=== PATIENT | male | born 1975 | race Caucasian/White ===

== ENCOUNTER 2023-06-15 06:21 | Outpatient (OUT) | payer OTHER, SELFPAY ==
[2023-06-15 06:50] LABS: Basophils Absolute Auto 0.1 10^3/uL (0.0-0.1); Basophils Percent Auto 0.9 % (0.2-2.0); Eosinophils Absolute Auto 0.4 10^3/uL (0.0-0.7); Eosinophils Percent Auto 7.6 % (0.9-7.0); Hematocrit 43.2 % (42.0-54.0); Hemoglobin 14.5 g/dL (14.0-18.0); Immature Granulocytes Abs Auto 0.01 10^3/uL (0.00-0.03); Immature Granulocytes Pct Auto 0.2 % (0.0-0.5); Lymphocytes Absolute Auto 1.9 10^3/uL (1.2-3.8); Lymphocytes Percent Auto 33.7 % (20.5-60.0); Mean Corpuscular HGB Conc 33.6 g/dL (29.9-35.2); Mean Corpuscular Hemoglobin 30.9 pg (25.9-34.0); Mean Corpuscular Volume 92.1 fL (80.0-94.0); Monocytes Absolute Auto 0.5 10^3/uL (0.3-0.8); Monocytes Percent Auto 9.3 % (1.7-12.0); Neutrophils Absolute Auto 2.8 10^3/uL (1.4-6.5); Neutrophils Percent Auto 48.3 % (43.0-75.0); Platelet Count 192 10^3/uL (150-450); Red Blood Count 4.69 10^6/uL (4.70-6.10); Red Cell Distribution Width 12.8 % (11.0-15.0); White Blood Count 5.7 10^3/uL (4.0-11.0)
[2023-06-15 07:27] LABS: Alanine Aminotransferase 66 U/L (16-63); Albumin Globulin Ratio 1.1; Albumin Level 3.7 g/dL (3.4-5.0); Alkaline Phosphatase 62 U/L (46-116); Anion Gap 13.6; Aspartate Amino Transferase 30 U/L (15-37); Bilirubin Total 0.6 mg/dL (0.2-1.0); Calcium 8.6 mg/dL (8.5-10.1); Carbon Dioxide 28.4 mmol/L (21.0-32.0); Chloride 104 mmol/L (98-107); Chol HDL Ratio 5.4; Cholesterol 207 mg/dL (<=200); Estimated GFR (African America >60 (>=60); Estimated GFR (Non-African Ame >60 (>=60); Globulin 3.4 g/dL; Glucose 103 mg/dL (74-106); HDL Cholesterol 38 mg/dL (40-60); Sodium 142 mmol/L (136-145); Total Protein 7.1 g/dL (6.4-8.2); Triglycerides 172 mg/dL (<=150); Uric Acid 8.7 mg/dL (3.5-7.2); VLDL CHOLESTEROL 34.4 mg/dL
[2023-06-15 07:44] LABS: Estimated Average Glucose 105 mg/dL; Glycohemoglobin A1C 5.3 % (4.5-6.2)
== END 2023-06-15 06:22 | disposition home or self-care (01) ==
LOC: LAB 06:24
PROVIDERS: PCP Internal Medicine; Visit Provider Internal Medicine
DX: E79.0 Hyperuricemia without signs of inflammatory arthritis and tophaceous disease (principal); I10 Essential (primary) hypertension; E78.5 Hyperlipidemia, unspecified; Z13.1 Encounter for screening for diabetes mellitus
CPT/HCPCS: 36415; 80053; 80061; 83036; 84550; 85025

== ENCOUNTER 2023-09-04 06:26 | Outpatient (OUT) | payer OTHER, SELFPAY ==
--- OUTSIDE RECORDS SUMMARY | 2023-09-04 06:29 | XMS_ITS | CCD ---
Author Name Unknown Address [address] [place] [address] Organization [facility] Care Team Providers Care Track Broom Operator Name Role Phone SAM BARON Admitting Unavailable SAM BARON Attending Unavailable SAM BARON Primary Care Unavailable SAM BARON Consulting Unavailable FAWWAD, SOLIMAN Admitting Unavailable FAWWAD, SOLIMAN Attending Unavailable SAM BARON Primary Care Unavailable Abigail Blank Consulting Unavailable FAWWAD, SOLIMAN Consulting Unavailable FAWWAD, SOLIMAN Admitting Unavailable FAWWAD, SOLIMAN Attending Unavailable FAWWAD, SOLIMAN Primary Care Unavailable FAWWAD, SOLIMAN Consulting Unavailable FAWWAD, SOLIMAN Admitting Unavailable FAWWAD, SOLIMAN Attending Unavailable FAWWAD, SOLIMAN Primary Care Unavailable DR TOM MCCRACKEN Consulting Unavailable FAWWAD, SOLIMAN Consulting Unavailable FAWWAD, SOLIMAN Admitting Unavailable FAWWAD, SOLIMAN Attending Unavailable FAWWAD, SOLIMAN Primary Care Unavailable FAWWAD, SOLIMAN Consulting Unavailable Zehra Fischer Unavailable Dominick Mcallister Unavailable Medications Current Medications Medication Drug Class(es) Dates Sig (Normalized) Sig (Original) Allopurinol (2 sources) Xanthine Oxidase Inhibitor Allopurinol Active Fenofibrate (2 sources) Peroxisome Proliferator Receptor alpha Agonist Fenofibrate Activ e Metoprolol (2 sources) beta-Adrenergic Cely Metoprol ol Succinate ER Active olmesartan (2 sources) Angiotensin 2 Receptor Cely Olmesartan Medoxomil Active pantoprazole (2 sources) Proton Pump Inhibitor Pantoprazo le Sodium Active Spironolactone (2 sources) Aldosterone Antagonist Spironola ctone Active Problems Active Problems Problem Classification Problem Date Documented Da te Episodic/Chronic Disorders of lipid metabolism (5 sources) Hyperlipidemia, unspecified; Translations: [HYPERLIPIDEMIA UNSPECIFIED] Onset: 06-05-2021 Chronic Essential hypertension (1 source) Essential (primary) hypertension; Translations: [ESSENTIAL PRIMARY HYPERTENSION] Onset: 06-05-2021 Chronic Gout and other crystal arthropathies (4 sources) Chronic gout, unspecified, without tophus (tophi); Translations: [CHRONIC GOUT UNSPECIFIED W/O TOPHUS] Onset: 05-31-2021 Chronic Other nutritional; endocrine; and metabolic disorders (1 source) Morbid (severe) obesity due to excess calories; Translations: [MORBID SEVERE OBES D/T EXCESS LEWIS] Onset: 08-30-2021 Chronic Other screening for suspected conditions (not mental disorders or infectious disease) (4 sources) Abnormal findings on diagnostic imaging of liver and biliary tract; Translations: [ABNORM FIND DX IMAG LIVR BILI TRACT] Onset: 10-15-2021 Episodic Past or Other Problems Problem Classification Problem Date Documented Da te Episodic/Chronic Immunizations and screening for infectious disease (1 source) Contact with and (suspected) exposure to other viral communicable diseases Onset: 06-06-2021 Resolved: 06-06-2021 Episodic Other liver diseases (5 sources) Abnormal levels of other serum enzymes; Translations: [ABNORMAL LEVELS OTHER SERUM ENZYMES] Onset: 07-07-2021 Episodic Viral infection (1 source) COVID-19 Onset: 06-06-2021 Resolved: 06-06-2021 Results Test Name Value Interpretation Reference Range Facil ity LIPID PROFILEon 12-06-2021 CHOL-HDL RATIO NORM SEE BELOW Normal [facility] Comment on above: Result Comment: 3.3 - 4.4 LOW RISK 4.4 - 7.1 AVERAGE RISK 7.1 - 11.0 MODERATE RISK >11.0 HIGH RISK Performed By: #### L IPID ####[facility] [address] [place], [place] [address]XrDoug Melissa Cholesterol [Mass/Vol] 140 mg/dL Normal <=200 [facility] Comment on above: Performed By: #### L IPID ####[facility] [address] [place], [place] [address]AkDoug Melissa Cholesterol in HDL [Mass/Vol] 37 mg/dL Critically low 40-60 [facility] Comment on above: Performed By: #### L IPID ####[facility] [address] [place] [id number]. Gertrude Melissa Cholesterol in LDL [Mass/Vol] 78.4 mg/dL Normal [facility] Comment on above: Performed By: #### L IPID ####[facility] [address] [place] [id number]. Gertrude Melissa Cholesterol.total/ Cholesterol in HDL [Mass ratio] 3.8 {ratio} Normal [facility] Comment on above: Performed By: #### L IPID ####[facility] [id number] [place] [address]Dr. Gertrude Melissa HDL NORMAL > or = 60 mg/dl - LO W CARDIOVASCULAR RISK <40 mg/dl - HIGH CARDIOVASCULAR RISK Normal [facility] Comment on above: Performed By: #### L IPID ####[facility] [address] [place], [place] [address]Dr. Gertrude Melissa LDL CALC NORMAL SEE BELOW Normal [facility] Comment on above: Result Comment: <100 mg/dl OPTIMAL 100 - 129 mg/dl NEAR OR ABOVE OPTIMAL 130 - 159 mg/dl BORDERLINE HIGH 160 - 189 mg/dl HIGH >190 mg/dl VERY HIGH Performed By: #### L IPID ####[facility] [address] [place] [id number]. Gertrude Melissa Triglyceride [Mass/Vol] 123 mg/dL Normal <=150 [facility] Comment on above: Performed By: #### L IPID ####[facility] [address] [place] [id number]. Gertrude Melissa VLDL CALC 24.6 mg/dL Normal [facility] Comment on above: Performed By: #### L IPID ####[facility] [address] [place] [id number]. Gertrude Melissa US SINGLE QUAD RT UPPERon US SINGLE QUAD RT UPPER EXAMINATION: US SINGLE QUAD RT UPPER HISTORY: Abnormal findings diagnostic imaging of liver+biliary tract ; abnormal liver function test COMPARISON: Ultrasound right upper quadrant 07/07/2021 TECHNIQUE: Transabdominal evaluation of the right upper quadrant. FINDINGS: LIVER: Slightly increased echogenicity suggestive of fatty infiltration, with small hypoechoic area adjacent the gallbladder fossa typically associated with an area of fatty sparing. Liver appears slightly prominent, 18 cm. PORTAL VEIN: Duplex Doppler demonstrates normal hepatopetal flow pattern with flow velocity averaging 22 cm/s. GALLBLADDER: No visible gallstones, wall thickening, or pericholecystic free fluid. Negative sonographic Mendoza's sign. BILIARY: No abnormal dilation or stones. Common bile duct diameter is within normal limits. PANCREASE: No visible mass, abnormal atrophy, or duct dilation. KIDNEY: No hydronephrosis. No visible mass or stones. Size: 12.9 x 6.4 x 7.2 cm IMPRESSION: 1. Fatty infiltration of liver. Electronically authenticated by: TOM MCCRACKEN Date: 2021-10-15 16:50 Normal [facility] HEPATITIS PANEL, ACUTEon HBsAg Screen Negative Normal Negative [facility] Comment on above: Performed By: #### H EPACUT #### [facility] [address] [place] [address] [address] Gertrude Melissa Hep A Ab, IgM Negative Normal Negative [facility] Comment on above: Performed By: #### H EPACUT #### [facility] [address] [place] [address] [address] Gertrude Melissa Hep B Core Ab, IgM Negative Normal Negative [facility] Comment on above: Performed By: #### H EPACUT #### [facility] [address] [place] [address] [address] Gertrude Melissa Hep C Virus Ab <0.1 Normal 0.0-0.9 [facility] Comment on above: Result Comment: Nega tive: < 0.8 Indeterminate: 0.8 - 0.9 Positive: > 0.9 . The CDC recommends that a positive HCV antibody result be followed up with a HCV Nucleic Acid Amplification test (586831). Effective October 10, 2021 Hepatitis Panel (4) will be made non-orderable. [facility] offers order code 100402 Acute Hepatitis. Performed By: #### H EPACUT #### [facility] [address] [place] [address] Dr. Gertrude Melissa LIPID PROFILEon 08-26-2021 CHOL-HDL RATIO NORM SEE BELOW Normal [facility] Comment on above: Result Comment: 3.3 - 4.4 LOW RISK 4.4 - 7.1 AVERAGE RISK 7.1 - 11.0 MODERATE RISK >11.0 HIGH RISK Performed By: #### L IVER, LIPID #### [facility] [address] [place] [address] [address] Gertrude Melissa Cholesterol [Mass/Vol] 155 mg/dL Normal <=200 [facility] Comment on above: Performed By: #### L IVER, LIPID #### [facility] [address] [place] [address] Dr. Gertrude Melissa Cholesterol in HDL [Mass/Vol] 41 mg/dL Normal [facility] Comment on above: Performed By: #### L IVER, LIPID #### [facility] [address] [place] [address] Dr. Gertrude Melissa Cholesterol in LDL [Mass/Vol] 92.2 mg/dL Normal [facility] Comment on above: Performed By: #### L IVER, LIPID #### [facility] [address] [place] [address] Dr. Gertrude Melissa Cholesterol.total/ Cholesterol in HDL [Mass ratio] 3.8 {ratio} Normal [facility] Comment on above: Performed By: #### L IVER, LIPID #### [facility] [address] [place] [address] Dr. Gertrude Melissa HDL NORMAL > or = 60 mg/dl - LO W CARDIOVASCULAR RISK <40 mg/dl - HIGH CARDIOVASCULAR RISK Normal [facility] Comment on above: Performed By: #### L IVER, LIPID #### [facility] [address] [place], [place] [id number] Dr. Gertrude Melissa LDL CALC NORMAL SEE BELOW Normal [facility] Comment on above: Result Comment: <100 mg/dl OPTIMAL 100 - 129 mg/dl NEAR OR ABOVE OPTIMAL 130 - 159 mg/dl BORDERLINE HIGH 160 - 189 mg/dl HIGH >190 mg/dl VERY HIGH Performed By: #### L IVER, LIPID #### [facility] [address] [place] [address] [address] Gertrude Melissa Triglyceride [Mass/Vol] 109 mg/dL Normal <=150 [facility] Comment on above: Performed By: #### L IVER, LIPID #### [facility] [address] [place] [address] [address] Gertrude Melissa VLDL CALC 21.8 mg/dL Normal [facility] Comment on above: Performed By: #### L IVER, LIPID #### [facility] [address] [place] [address] [address] Gertrude Melissa LIVER PROFILEon 08-26-2021 Albumin [Mass/Vol] 3.9 g/dL Normal 3.5-5.0 [facility] Comment on above: Performed By: #### L IVER, LIPID #### [facility] [address] [place] [address] Dr. Gertrude Melissa Albumin/Globulin [Mass ratio] 1.0 {ratio} Normal [facility] Comment on above: Performed By: #### L IVER, LIPID #### [facility] [address] [place] [address] Dr. Gertrude Melissa ALP [Catalytic activity/Vol] 50 U/L Normal 38-126 [facility] Comment on above: Performed By: #### L IVER, LIPID #### [facility] [address] [place] [address] Dr. Gertrude Melissa ALT [Catalytic activity/Vol] 79 U/L Critically high 21-72 [facility] Comment on above: Performed By: #### L IVER, LIPID #### [facility] [address] [place] [address] Dr. Gertrude Melissa AST [Catalytic activity/Vol] 35 U/L Normal 17-59 [facility] Comment on above: Performed By: #### L IVER, LIPID #### [facility] [address] [place] [address] Dr. Gertrude Melissa BILI, CONJUGATED 0.2 mg/dL Normal 0.0-0.3 [facility] Comment on above: Performed By: #### L IVER, LIPID #### [facility] [address] [place], [place] [address] Dr. Gertrude Melissa Bilirubin [Mass/Vol] 0.6 mg/dL Normal 0.2-1.3 [facility] Comment on above: Performed By: #### L IVER, LIPID #### [facility] [address] [place], [place] [address] Dr. Gertrude Melissa Globulin (S) [Mass/Vol] 3.8 g/dL Normal [facility] Comment on above: Performed By: #### L IVER, LIPID #### [facility] [address] [place], [place] [address] Dr. Gertrude Melissa Protein [Mass/Vol] 7.7 g/dL Normal 6.1-8.2 [facility] Comment on above: Performed By: #### L IVER, LIPID #### [facility] [address] [place], [place] [address] Dr. Gertrude Melissa US SINGLE QUAD RT UPPERon US SINGLE QUAD RT UPPER EXAM: US SINGLE QUAD RT UPPER HISTORY: . Liver enzymes abnormal . COMPARISON: None. TECHNIQUE: Grayscale and color imaging was performed FINDINGS: The body of pancreas appears normal. The head and tail was scattered due to overlying bowel gas Scanning of the liver demonstrates diffuse increased echogenicity of liver consistent with fatty infiltration of the liver. Within the right lobe of the liver near the gallbladder fossa there was a small area of hypoechogenicity most consistent with focal fatty sparing. The liver is mildly enlarged measuring 18 cm. Color-flow is noted in the portal and hepatic veins. The gallbladder appears normal with no stones or sludge identified. No gallbladder wall thickening is noted. Common bile duct is normal measuring 4.6 mm. Right kidney measures 11.9 x 6.7 x 7.5 cm. Color-flow is noted. No solid renal cortical masses or hydronephrosis is noted. No fluid is noted in the right upper quadrant. IMPRESSION: 1. The liver is mildly enlarged measuring 18 cm. There is increased echogenicity of liver consistent with fatty infiltration of the liver. There is a small area of hypoechogenicity in the right lobe liver near the gallbladder fossa most consistent with focal fatty sparing. Follow-up to document stability is suggested. 2. The body of pancreas appears normal. The head and tail was obscured due to overlying bowel gas. 3. The remainder of the right upper quadrant was unremarkable. Electronically authenticated by: ABIGAIL BLANK Date: 2021-07-07 09:14 Normal [facility] CBC AUTO DIFFon 05-31-2021 BASO # 0.0 103/ul Normal 0.0-0.1 [facility] Comment on above: Performed By: #### C BC #### [facility] [address] [place] [address] Dr. Gertrude Melissa Basophils/100 WBC (Bld) 0.7 % Normal 0.2-2.0 [facility] Comment on above: Performed By: #### C BC #### [facility] [address] [place] [address] Dr. Gertrude Melissa EO # 0.3 103/ul Normal 0.0-0.7 [facility] Comment on above: Performed By: #### C BC #### [facility] [address] [place] [address] Dr. Gertrude Melissa Eosinophils/100 WBC (Bld) 5.2 % Normal 0.9-7.0 [facility] Comment on above: Performed By: #### C BC #### [facility] [address] [place] [address] Dr. Gertrude Melissa Erythrocyte distribution width (RBC) [Ratio] 12.8 % Normal 11.0-15.0 [facility] Comment on above: Performed By: #### C BC #### [facility] [address] [place] [address] Dr. Gertrude Melissa Hematocrit (Bld) [Volume fraction] 44.4 % Normal 42.0-54.0 [facility] Comment on above: Performed By: #### C BC #### [facility] [address] [place] [address] Dr. Gertrude Melissa Hemoglobin (Bld) [Mass/Vol] 14.6 g/dL Normal 14.0-18.0 [facility] Comment on above: Performed By: #### C BC #### [facility] [address] [place] [address] Dr. Gertrude Melissa IG # 0.02 10e3/ul Normal 0.00-0.03 [facility] Comment on above: Performed By: #### C BC #### [facility] [address] [place] [address] Dr. Gertrude Melissa IG % 0.4 % Normal 0.0-0.5 [facility] Comment on above: Performed By: #### C BC #### [facility] [address] [place] [address] Dr. Gertrude Melissa LYMPH # 1.7 103/ul Normal 1.2-3.8 [facility] Comment on above: Performed By: #### C BC #### [facility] [address] [place] [address] Dr. Gertrude Melissa Lymphocytes/100 WBC (Bld) 31.9 % Normal 20.5-60.0 [facility] Comment on above: Performed By: #### C BC #### [facility] [address] [place] [address] Dr. Gertrude Melissa MANUAL DIFF REQ NO Normal [facility] Comment on above: Performed By: #### C BC #### [facility] [address] [place] [address] Dr. Gertrude Melissa MCH (RBC) [Entitic mass] 31.1 pg Normal 25.9-34.0 [facility] Comment on above: Performed By: #### C BC #### [facility] [address] [place] [address] Dr. Gertrude Melissa MCHC (RBC) [Mass/Vol] 32.9 g/dL Normal 29.9-35.2 [facility] Comment on above: Performed By: #### C BC #### [facility] [address] [place] [address] Dr. Gertrude Melissa MCV (RBC) [Entitic vol] 94.5 fL Critically high 80.0-94.0 [facility] Comment on above: Performed By: #### C BC #### [facility] [address] [place] [address] Dr. Gertrude Melissa MONO # 0.4 103/ul Normal 0.3-0.8 [facility] Comment on above: Performed By: #### C BC #### [facility] [address] [place] [address] [address] Gertrude Melissa Monocytes/100 WBC (Bld) 7.6 % Normal 1.7-12.0 [facility] Comment on above: Performed By: #### C BC #### [facility] [address] [place] [address] [address] Gertrude Melissa NEUT # 2.9 103/ul Normal 1.4-6.5 [facility] Comment on above: Performed By: #### C BC #### [facility] [address] [place] [address] Dr. Gertrude Melissa Neutrophils/100 WBC (Bld) 54.2 % Normal 43.0-75.0 [facility] Comment on above: Performed By: #### C BC #### [facility] [address] [place] [address] Dr. Gertrude Melissa Platelet mean volume (Bld) [Entitic vol] 11.0 fL Normal 9.5-13.5 [facility] Comment on above: Performed By: #### C BC #### [facility] [address] [place] [address] Dr. Gertrude Melissa PLT 232 103/ul Normal 150-450 [facility] Comment on above: Performed By: #### C BC #### [facility] [address] [place] [address] Dr. Gertrude Melissa RBC 4.70 106/ul Normal 4.70-6.10 [facility] Comment on above: Performed By: #### C BC #### [facility] [address] [place] [address] Dr. Gertrude Melissa WBC 5.4 103/ul Normal 4.0-11.0 [facility] Comment on above: Performed By: #### C BC #### [facility] [address] [place] [address] Dr. Gertrude Melissa LIPID PROFILEon 05-31-2021 CHOL-HDL RATIO NORM SEE BELOW Normal [facility] Comment on above: Result Comment: 3.3 - 4.4 LOW RISK 4.4 - 7.1 AVERAGE RISK 7.1 - 11.0 MODERATE RISK >11.0 HIGH RISK Performed By: #### C MP, URIC, LIPID #### [facility] [address] [place] [address] [address] Gertrude Melissa Cholesterol [Mass/Vol] 204 mg/dL Critically high <=200 [facility] Comment on above: Performed By: #### C MP, URIC, LIPID #### [facility] [address] [place] [address] [address] Gertrude Melissa Cholesterol in HDL [Mass/Vol] 41 mg/dL Normal [facility] Comment on above: Performed By: #### C MP, URIC, LIPID #### [facility] [address] [place] [address] Dr. Gertrude Melissa Cholesterol in LDL [Mass/Vol] 133.0 mg/dL Normal [facility] Comment on above: Performed By: #### C MP, URIC, LIPID #### [facility] [address] [place] [address] [address] Gertrude Melissa Cholesterol.total/ Cholesterol in HDL [Mass ratio] 5.0 {ratio} Normal [facility] Comment on above: Performed By: #### C MP, URIC, LIPID #### [facility] [address] [address] [address] Gertrude Melissa HDL NORMAL > or = 60 mg/dl - LO W CARDIOVASCULAR RISK <40 mg/dl - HIGH CARDIOVASCULAR RISK Normal [facility] Comment on above: Performed By: #### C MP, URIC, LIPID #### [facility] [address] [place] [address] Dr. Gertrude Melissa LDL CALC NORMAL SEE BELOW Normal [facility] Comment on above: Result Comment: <100 mg/dl OPTIMAL 100 - 129 mg/dl NEAR OR ABOVE OPTIMAL 130 - 159 mg/dl BORDERLINE HIGH 160 - 189 mg/dl HIGH >190 mg/dl VERY HIGH Performed By: #### C MP, URIC, LIPID #### [facility] [address] [place] [address] Dr. Gertrude Melissa Triglyceride [Mass/Vol] 150 mg/dL Normal <=150 [facility] Comment on above: Performed By: #### C MP, URIC, LIPID #### [facility] [address] [address] [address] Gertrude Melissa VLDL CALC 30.0 mg/dL Normal [facility] Comment on above: Performed By: #### C MP, URIC, LIPID #### [facility] [address] [place] [address] [address] Gertrude Melissa MICROALBUMIN, RAND URon 11- mALB 0.2 mg/L Normal <=30.0 [facility] Comment on above: Performed By: #### M ALBR #### [facility] [address] [address] [address] Gertrude Melissa PROF 14(COMP METB)on 021 Albumin [Mass/Vol] 4.2 g/dL Normal 3.5-5.0 [facility] Comment on above: Performed By: #### C MP, URIC, LIPID #### [facility] [address] [place] [address] Dr. Gertrude Melissa Albumin/Globulin [Mass ratio] 1.1 {ratio} Normal [facility] Comment on above: Performed By: #### C MP, URIC, LIPID #### [facility] [address] [place] [address] Dr. Gertrude Melissa ALP [Catalytic activity/Vol] 59 U/L Normal 38-126 [facility] Comment on above: Performed By: #### C MP, URIC, LIPID #### [facility] [address] [address] [address] Gertrude Melissa ALT [Catalytic activity/Vol] 96 U/L Critically high 21-72 [facility] Comment on above: Performed By: #### C MP, URIC, LIPID #### [facility] [address] [place] [address] Dr. Gertrude Melissa Anion gap [Moles/Vol] 11.5 mmol/L Normal [facility] Comment on above: Performed By: #### C MP, URIC, LIPID #### [facility] [address] [place] [address] Dr. Gertrude Melissa AST [Catalytic activity/Vol] 48 U/L Normal 17-59 [facility] Comment on above: Performed By: #### C MP, URIC, LIPID #### [facility] [address] [place] [address] Dr. Gertrude Melissa Bilirubin [Mass/Vol] 0.7 mg/dL Normal 0.2-1.3 [facility] Comment on above: Performed By: #### C MP, URIC, LIPID #### [facility] [address] [place] [address] Dr. Gertrude Melissa Calcium [Mass/Vol] 9.4 mg/dL Normal 8.4-10.2 [facility] Comment on above: Performed By: #### C MP, URIC, LIPID #### [facility] [address] [place] [address] Dr. Gertrude Melissa Chloride [Moles/Vol] 103 mmol/L Normal 98-107 [facility] Comment on above: Performed By: #### C MP, URIC, LIPID #### [facility] [address] [place] [address] Dr. Gertrude Melissa CO2 [Moles/Vol] 29.6 mmol/L Normal 22.0-30.0 The [facility] Comment on above: Performed By: #### C MP, URIC, LIPID #### [facility] [address] [place] [address] Dr. Gertrude Melissa Creatinine [Mass/Vol] 1.24 mg/dL Normal 0.66-1.25 [facility] Comment on above: Performed By: #### C MP, URIC, LIPID #### [facility] [address] [place] [address] Dr. Gertrude Melissa EGFR-AF UGANDAN >60 Normal >=60 The [facility] Comment on above: Performed By: #### C MP, URIC, LIPID #### [facility] [address] [place] [address] Dr. Gertrude Melissa EGFR-NON AF UGANDAN >60 Normal >=60 [facility] Comment on above: Performed By: #### C MP, URIC, LIPID #### [facility] [address] [place] [address] Dr. Gertrude Melissa Globulin (S) [Mass/Vol] 3.9 g/dL Normal [facility] Comment on above: Performed By: #### C MP, URIC, LIPID #### [facility] [address] [address] [address] Gertrude Melissa Glucose [Mass/Vol] 85 mg/dL Normal 74-106 [facility] Comment on above: Performed By: #### C MP, URIC, LIPID #### [facility] [address] [place] [address] Dr. Gertrude Melissa Potassium [Moles/Vol] 4.1 mmol/L Normal 3.4-5.0 [facility] Comment on above: Performed By: #### C MP, URIC, LIPID #### [facility] [address] [place] [address] Dr. Gertrude Melissa Protein [Mass/Vol] 8.1 g/dL Normal 6.1-8.2 [facility] Comment on above: Performed By: #### C MP, URIC, LIPID #### [facility] [address] [place] [address] Dr. Gertrude Melissa Sodium [Moles/Vol] 140 mmol/L Normal 137-145 [facility] Comment on above: Performed By: #### C MP, URIC, LIPID #### [facility] [address] [place] [address] Dr. Gertrude Melissa Urea nitrogen [Mass/Vol] 17.0 mg/dL Normal 9.0-20.0 [facility] Comment on above: Performed By: #### C MP, URIC, LIPID #### [facility] [address] [place] [address] Dr. Gertrude Melissa Urea nitrogen/Creatinin e [Mass ratio] 13.7 mg/mg Normal [facility] Comment on above: Performed By: #### C MP, URIC, LIPID #### [facility] [address] [place] [address] Dr. Gertrude Melissa URIC ACID SERUMon 05-31-2021 Urate [Mass/Vol] 5.5 mg/dL Normal 3.5-8.5 [facility] Comment on above: Performed By: #### C MP, URIC, LIPID #### [facility] [address] [address] [address] Gertrude Melissa Vital Signs Date Time Vital Sign Value Performing Clinician Facility 06-06-2021 11:30-0500 Body height 190.5 cm Zehra Izquierdomond Other [facility] Other 06-06-2021 11:30-0500 Body mass index (BMI) [Ratio] 44.99 kg/m2 Zehra Fischer Other [facility] Other 06-06-2021 11:30-0500 Body temperature 97.1 [degF] Zehra Fischer Other [facility] Other 06-06-2021 11:30-0500 Body weight 163.3 kg Zehra Fischer Other [facility] Other 06-06-2021 11:30-0500 SaO2% (BldA) [Mass fraction] 99 % Zehra Fischer Other [facility] Other Encounters Encounter Date Encounter Type Care Provider Facility Start: 08-02-2023 End: 08-02-2023 ambulatory Dominick Mcallister Other [facility] Other Start: 08-02-2023 Telephone encounter Dominick VILLAR G Document Control Supervisor Start: 12-06-2021 End: 12-07-2021 ambulatory [facility] Facility:[facility]1 Start: 10-15-2021 End: 10-16-2021 ambulatory [facility] Facility:[facility] Start: 08-26-2021 End: 08-27-2021 ambulatory [facility] Facility:[facility] Start: 07-07-2021 End: 07-08-2021 ambulatory [facility] Facility:[facility]1 Start: 06-06-2021 (URG) Urgent Care Visit [facility] Start: 06-06-2021 End: 06-06-2021 ambulatory Zehra Fischer Other [facility] Other Start: 05-31-2021 End: 06-01-2021 ambulatory SAM BARON Facility:[facility]1 Payers Date Payer Category Payer Unknown [id number] 2.16.84 [id number] 1975 Unknown [id number] 2.16.84 [id number] 1975 Unknown [id number] 2.16.84 [id number] 1975 Unknown [id number] 2.16.84 [id number] 1975 Unknown [id number] 2.16.84 [id number] 1959 Unknown [id number] Social History Date Type Detail Facility Sex Assigned At [facility] Other Evaluation note 06-06-2021 Note Date & Type Note Facility 06-06-2021 Evaluation note Encounter Date Diagnosis Assessment Notes May, Contact with and (suspected) exposure to other viral communicable diseases (ICD-10 - Z20.828) May, COVID-19 (ICD-10 - U07.1) May, Other Additional time spent conducting pre-visit phone call, screening for symptoms, instructions on social distancing, application and removal of PPE, and cleaning of examination room, equipment and supplies was preformed. Patient education given for testing methodology and results. Patient care instructions given in writting by [facility] document. [facility] Other Evaluation note Note Date & Type Note Facility Evaluation note No Information [facility] Other History general Narrative - Reported Note Date & Type Note Facility History general Narrative - Reported Type Medical History high blood pressure Medical History high cholesterol [facility] Other Summary Purpose Family History No Family History Records Found Advance Directives No Advanced Directives Records Found Additional Source Comments (unrecognized sect ion and content) No Status Records Found INFORMATION SOURCE (unrecogn ized section and content) DATE CREATED AUTHOR 12/10/2021 [facility] REASON FOR VISIT (unrecogniz ed section and content) #7 GONZALEZ TRAILBLAZER, COUGH, CONGESTION, COVID EXPSOUREMAIL PPW FOR RECORDS PERTAINING TO PATIENTS WHO ARE OR HAVE BEEN ENROLLED IN A CHEMICAL DEPENDENCY/SUBSTANCEABUSE PROGRAM, SOME INFORMATION MAY BE OMITTED. This clinical summary was aggregated from multiple sources. Caution should be exercised in using it in the provision of clinical care. This summary normalizes information from multiple sources, and as a consequence, information in this document may materially change the coding, format and clinical context of patient data. In addition, data may be omitted in some cases. CLINICAL DECISIONS SHOULD BE BASED ON THE PRIMARY CLINICAL RECORDS. [employer] provides no warranty or guarantee of the accuracy or completeness of information in this document.
[2023-09-04 07:33] LABS: Alanine Aminotransferase 66 U/L (16-63); Albumin Level 3.7 g/dL (3.4-5.0); Alkaline Phosphatase 65 U/L (46-116); Aspartate Amino Transferase 26 U/L (15-37); Bilirubin Direct 0.1 mg/dL (0.0-0.2); Bilirubin Total 0.5 mg/dL (0.2-1.0); Chol HDL Ratio 3.6; Cholesterol 135 mg/dL (<=200); Globulin 3.8 g/dL; HDL Cholesterol 38 mg/dL (40-60); Total Protein 7.5 g/dL (6.4-8.2); Triglycerides 107 mg/dL (<=150); VLDL CHOLESTEROL 21.4 mg/dL
== END 2023-09-04 06:27 | disposition home or self-care (01) ==
LOC: LAB 06:27
PROVIDERS: PCP Internal Medicine; Visit Provider Internal Medicine
DX: E78.49 Other hyperlipidemia (principal); E88.810 Metabolic syndrome
CPT/HCPCS: 36415; 80061; 80076

== ENCOUNTER 2025-07-21 08:52 | Outpatient (OUT) | payer OTHER, SELFPAY ==
--- OUTSIDE RECORDS SUMMARY | 2025-07-14 03:54 | XMS_ITS | Continuity of Care Document ---
Author Organization [facility] Address [address] [place] [address] Phone Care Team Providers Care Prop Worker Name Role Phone JonelMichaelSabrina DO Primary Care Provider [phone] Jonel, Sabrina DO Attending Provider [phone] Care Teams Patient Care Team Team Status: Active Member Role/Relationship Status Dates Sabrina Jonel , DO Primary Care Provider Active Visit Care Team Team Status: Inactive Member Role/Relationship Status Dates Sabrina Jonel , DO Primary Care Provider Active S tart: May 26, 2025 End: May 26, 2025Jessica Jonel , DOAttending ProviderActiveStart: May 26, 2025 End: May 26, 2025 Visit Care Team Team Status: Inactive Member Role/Relationship Status Dates Sabrina Jonel , DO Primary Care Provider Active S tart: June 02, 2025 End: June 02, 2025Jessica Jonel , DOAttending ProviderActiveStart: June 02, 2025 End: June 02, 2025 Visit Care Team Team Status: Inactive Member Role/Relationship Status Dates Sabrina Jonel , DO Primary Care Provider Active S tart: June 02, 2025 End: June 02, 2025Jessica Jonel , DOAttending ProviderActiveStart: June 02, 2025 End: June 02, 2025 Patient Care Team Team Status: Inactive Member Role/Relationship Status Dates Sabrina Jonel , DO Primary Care Provider Active S tart: July 14, 2025 End: July 14, 2025Jessica Jonel , DOAttending ProviderActiveStart: July 14, 2025 End: July 14, 2025 Chief Complaint and Reason for Visit Chief Complaint Admit Date back pain and spasms May 26, 2025 8:12am Back Pain June 02, 2025 1 1:22am M54.50 June 02, 2025 1 2:17pm 6M July 14, 2025 8:08am Reason for Visit Admit Date Strain of right latissimus dorsi muscle May 26, 2025 8:12am Acute lumbar back pain June 02 11:22am Acid reflux July 14, 2025 8:08am Gout July 14, 2025 8:08am High cholesterol July 14, 2025 8:08am HTN (hypertension) July 14, 2025 8:08am Seasonal allergies July 14, 2025 8:08am Reason for Referral Type Reason(s) Provider Provider Contact Information P rovider Address Start Date Acute low back pain Strain of right latissimus dorsi gqtaauA87.50 - Low back pain, unspecified,S29.012A - Strain of muscle and tendon of back wall of thorax, [facility]: [phone] [facility] [id number] Allergies, Adverse Reactions, Alerts Allergen Type Severity Reaction Last Updated Verified Status No Known Allergies Allergy Unknown July 14, 2025 8:14amYesActive Social History Smoking Status Status Start Date End Date Date of Observa tion Never smoked tobacco (finding) May 26, 2025 8:18am Observation Status Observation Response Date of Response Legal Sex Male (finding) Sex Assigned At [facility] 1975 Family History Relationship Condition Age at Onset Recorded Date/T clara mother Malignant neoplasm Unknown fatherHeart diseaseUnknownMyocardial infarctionUnknownHigh blood cholesterol UnknownHypertensionUnknownCerebrovascular accident (CVA)Unknown Problems Active Problems Problem Diagnosis/Recorded Date Onset Date Stat us Strain of right latissimus dorsi muscle May 26, 2025 7:46am Unknown Active Shortness of breath July 14, 2025 8:48am Unknown Active Gout September 06, 2023 7:23am Unknown Ac tive High cholesterol September 06, 2023 7:23am Unknown Active Seasonal allergies July 14, 2025 8:34am Unknown Active Wheezing July 14, 2025 8:48am Unknown A ctive Acute lumbar back pain June 02, 2025 11:47am Unkn own Active Acid reflux September 06, 2023 7:28am Unknown Ac tive HTN (hypertension) September 06, 2023 7:23am Unknown Active Medications Medication Status Dose Units Route Directions Qty Days Refills S tart Date Stop Date End Date Reason(s) Instructions Adherence Atorvastatin 20 mg tablet Discontinued 20 MG PO D aily September 06, 2023 12:00amOct[facility] 2024 7:21amMetoprolol Succinate 200 mg tablet extended release 24 hiYelvri980JSZKEigwtImzvwapr 2023 12:00am Complies with drug therapyPantoprazole 20 mg tablet,delayed release (DR/EC) Vubwflmavpqt02FLEF.every other dayFehonorhealth j[facility] 2023 12:00amDeencompass health [facility] 2024 8:45amAllopurinol 300 mg axquguFytvys216OGJYSeqboKglophky 2023 12:00am Complies with drug therapyOlmesartan 20 mg tkmwkdOrteos05BLCRZjbknYmnuoese 2023 12:00amComplies with drug therapyPantoprazole 20 mg tablet,delayed release (DR/EC)Yqijcbsnqbcy45RHMIVzoomNmysbtie 2024 8:44amDeceer 2024 8:45amPantoprazole 40 mg tablet,delayed release (DR/EC)Rppkiw84HJDBYfxdz931 July 14, 2025 12:00amComplies with drug therapyAlbuterol Sulfate 90 mcg/actuation HFA aerosol afmpsamVwfvxe9XDENPCGVYQAEWOZgzjs 6 hours as needed for shortness of breath or wheezing8.53Deencompass health [facility] 2024 12:00amComplies with drug therapyFluticasone Propionate (Aller-Caleb) 50 mcg/actuation spray,suspension Appfit8WYXLWADGNCVQCINZnwon dailyOctfleming county hospital 2024 11:00pmadminister into each nostrilComplies with drug therapyCetirizine (All Day Allergy (Cetirizine)) 10 mg qdmtmxiTlmgff14AZJNTymmt as neededOctfleming county hospital 2024 11:00pmComplies with drug therapyPrednisone 20 mg ppvgfoGkdovzorqkrf79UZVMEmgyk2669Ikyztjf 2024 11:00pmNovbarrow neurological institute 2024 11:32amBaclofen 10 mg hdxivxSadrdgjhemsk17ZOOPAboyn times daily as needed for muscle oceyh1972Vglhqkd 2024 11:00pmJune 02, 2025 11:32amCelecoxib (Celebrex) 100 mg wuxsmxiIasrnbnfmuic874QVLJUfaqp cdppy63904Frllwxek 4th, 2025 12:00amDecember 2024 8:14am Procedures Procedure Date Performed Status XR lumbar spine 2-3V* June 02, 2025 12:00am completed Relevant Diagnostic Tests and/or Laboratory Data Diagnostic Imaging Reports Author Boby Posada [facility] CenterAuthoredNov2024 4:56pmReportDictated Date/TimeDictated ByStatusRadiology ReportJune 02, 2025 4:56pmBoby Posada [facility] [place] [address] XRay Report Signed Patient: Nickolas Livingston MR#: [id number] 00 : 1975 Acct:[id number] Age/Sex: 49 / M ADM Date: 5 Loc: XNVLY Room: Type: [facility] Attending Dr: Sabrina Remy DO Copies to: Sabrina Remy DO~ Ordering Provider: Sabrina Remy DO Date of Service: 06/02/25 XR/XR lumbar spine 2-3V*: LOW BACK PAIN 3 VIEWS OF THE LUMBAR SPINE INDICATION: Acute low back pain COMPARISON: None FINDINGS: There is straightening of normal lumbar lordosis. There is mild loss of height at L1 and involving inferior plate, age-indeterminate and possibly chronic.. Mild intervertebral space narrowing otherwise L4-S1. Mild facet arthropathy L4-S1. No definite spinal listhesis or spondylolysis identified. XR/XR lumbar spine 2-3V* IMPRESSION: Mild degenerative changes lower lumbar spine. Inferior plate deformity at L1 possibly chronic. Correlate with history. Otherwise no definite acute fracture or malalignment identified Impression dictated by: Boby Posada M.D. 06/02/2025 4:59 PM Dictation Location: [address] [address] Transcribed By: [facility] 06/02/25 3481 Dictated By: Boby Posada MD 06/02/251655 Signed By: <Electronically signed by Boby Posada MD in [place]> 06/02/251658 Vital Signs Vital Reading Result Reference Range Collection Date/Time Height 75 [in_i] May 26, 2025 7:75zyYqqeoq566.36 kgOctober 2024 7:16amHeart Rate84 /gul09-819Igyrbwq 2024 7:16amRespiratory rate20 /aja01-23Kcfengd 2024 7:16amOxygen saturation by Pulse %95-100October 2024 7:16amBP Mnllufim682 mm[Hg]100-140October 2024 7:16amBP Rxihvuzuj97 mm[Hg] 60-100October 2024 7:16amBMI (Body Mass Index)47.5 kg/i8Eurmjae 2024 7:53ibKkvvys92 [in_i]June 02, 2025 11:55xeUycaxq569.91 kgNovember 2024 11:28amHeart Rate76 /hue91-184Uzctuhud 4th, 2025 11:28amRespiratory rate20 /pwy74-12Ifrehreh 4th, 2025 11:28amOxygen saturation by Pulse %95-100 June 02, 2025 11:28amBP Oxyocvyf472 mm[Hg]100-140Nov2024 11:28am BP Jrhpnxijr90 mm[Hg]60-100November 2024 11:28amBMI (Body Mass Index)47.3 kg/n2Hmbjmdwp2024 11:02fkLqjzfe05 [in_i]July 14, 2025 8:13amWeight 174.63 kgDecember 2024 8:13amHeart Rate94 /wxv31-525Ukacvxkd 2024 8:13amRespiratory rate20 /nem16-66Jnnrlvho 2024 8:13amOxygen saturation by Pulse xsvylxfd07 %95-100December 2024 8:13amBP Vzykfzhw701 mm[Hg]100-140 July 14, 2025 8:13amBP Inqkjrrjw78 mm[Hg]60-100December th, 2025 8:13am BMI (Body Mass Index)48.1 kg/i7Oxlritvi2024 8:13am Advance Directives Advance Directive Response Recorded Date/ Time Advance Directives No September 04, 2023 12:41pm Insurance Providers Guarantor Nickolas Livingston Address [address] [address]Ewhssqi Info.Home Phone: Payer Group Member ID Coverage Type Subscriber Relationship to Subscriber Effective Date Expiration Date MMO Id: [id number] Dick Id: [id number] [address] [address] Home Phone: Self Encounters Encounter Location(s) Arrival/Admit Date Discharge/Departure Date Discharge/Departure Disposition Provider(s) Departed Physician/ Provider Office Visit -[facility] May 26, 2025 8:12am May 26, 2025 8:40am Discharged to home care or self care (routine discharge) Sabrina Remy DO Departed Physician/ Provider Office Visit -[facility] June 02, 2025 11:22am June 02, 2025 12:07pm Discharged to home care or self care (routine discharge) Sabrina Remy DO Departed [facility] June 02, 2025 12:17pm June 02, 2025 12:18pm Discharged to home care or self care (routine discharge) Sabrina Remy DO Departed Physician/ Provider Office Visit -[facility] July 14, 2025 8:08am July 14, 2025 8:53am Discharged to home care or self care (routine discharge) Sabrina Remy DO Recent Diagnosis Onset Date Admit Date Strain of right latissimus dorsi muscle Unknown May 26, 2025 8:12am Acute lumbar back pain Unknown June 02, 2025 11:22am Acid reflux Unknown July 14, 2 025 8:08am Gout Unknown July 14 025 8:08am High cholesterol Unknown July 14, 2025 8:08am HTN (hypertension) Unknown June 8:08am Seasonal allergies Unknown June 8:08am Assessments Diagnosis Onset Date Resolution Status Admit Date Strain of right latissimus dorsi muscle acuteOctober 2024 8:12amAcute lumbar back painacuteNov2024 11:22amAcid refluxacuteDecember 2024 8:08amGoutacuteDecember 2024 8:08amHigh cholesterolacuteDecember 2024 8:08amHTN (hypertension)acute July 14, 2025 8:08amSeasonal allergiesacuteDecember 2024 8:08am Plan of Treatment Author Sabrina [facility]elK[facility] SpringfieldAutmckitrick hospitalOctfle[facility] hospital 2024 7:47amWill place on Baclofen at night time; he may use Lidoderm patch topically that's OTC; prednisone 40mg daily x 5 days and alternate ice and heat. If symptoms persist or worsen, notify the office or go to the ER. Will also consider Toradol shot next visit if symptoms persist. Return to clinic 1 week if symptoms persist Author Sabrina Remy [facility] 2024 12:10pmWill get X- ray lumbar spine, discussed with patient that it seems more muscular pain and some deconditioning, lack of core strength. He has completed all prior medications. Stop any OTC medications. Start Celebrex 100mg BID x 2 weeks, Order given for Physical therapy as well. Please return or call if no improvement. Return as needed or if symptoms do not resolve. Future Tests Future scheduled test information is unavailable Pending Tests Test Name Ordered Date Scheduled Date XR chest 2V* July 14, 2025 8:48am XR lumbar spine 2-3V*June 02, 2025 12:04pm Future Visits Future appointment information is unavailable Future Procedures Procedure Name Ordered Date Scheduled Date Complete Pulmonary Function July 14, 2025 8:47am Future Medications Future medication information is unavailable Patient Instructions Instruction Admit Date Low back pain in adults June 02 11:22am
--- OUTSIDE RECORDS SUMMARY | 2025-07-21 08:55 | XMS_ITS | Clinical Summary ---
Author Organization [facility] Healthcare Address [address] [place] [address] Care Team Providers Care Food Prep Worker Name Role Phone Shaikh AURELIANO Lugo Unavailable [phone] Juan C Hu MD Primary Care Provider Belinda Mcfarland NP Unavailable Allergies Active AllergyReactionsCriticalityNoted YtwvRklcxnoyEoogyepdmh81/19/2023Statins 07/17/2023 Medications MedicationSigDispense QuantityRefillsLast FilledStart DateEnd DateStatus albuterol HFA 90 mcg/act inhaler Indications:Chronic obstructive pulmonary disease, unspecified COPD type (HCC) Inhale 2 puffs every 4 (four) hours if needed for wheezing 18 g 4Active metoprolol succinate XL (Toprol-XL) 200 MG 24 hr tablet Indications:Primary hypertensionTake 1 tablet (200 mg) by mouth in the morning. 90 tablet 5Active olmesartan (BENIcar) 20 MG tablet Indications:Primary hypertensionTake 1 tablet (20 mg) by mouth in the morning. 90 tablet 5Active pantoprazole (ProtoNix) 20 MG EC tablet Indications:Gastroesophageal reflux disease without esophagitisTake 1 tablet (20 mg) by mouth in the morning. Take before meals. Do not crush, chew, or split. 90 tablet 5Active Active Problems ProblemNoted DateDiagnosed DateMixed yawnkhhxmxfkxw91/16/2025 Assessment & Plan (01/12/2025 8:58 AM EDT): Was on statin stopped d/t side effects Jsozlykzhgjqi03/16/2025 Assessment & Plan (01/12/2025 6:23 AM EDT): Allouprinol Check labs yearly and prn changes in dose or sxs Vitamin D uaoohkpepn53/16/2025 Assessment & Plan (01/12/2025 9:11 AM EDT): Vit d winter Bilateral fjjselbw81/16/2024 Assessment & Plan (07/14/2024 9:59 AM EST): Reports has been ongoing for 20 years Reports rarely associated dizziness States he has experienced BPPV symptoms once with tinnitus. Denies keeping him up at night Denies ear pain Referral sent to ENT Morbid (severe) obesity due to excess calories (E66.01)01/16/2024 Assessment & Plan (01/12/2025 9:20 AM EDT): Discussed with patient their BMI (actual, verses recommended). We have also discussed lifestyle modifications: attempts to perform physical activity as chronic conditions allow, also to monitor dietary intake: increasing protein/fruits/veggies and lowering carb intake (unless contraindicated). Limit sodas, juices, and sugary drinks. Life line screening: sl elevated ALT/AST mid 50's Assessment & Plan (01/16/2024 10:56 AM EDT): Patient educated on risks of increased cardiovascular morbidity/mortality and poor health outcomes associated with unhealthy bodyweight. Patient counseled on lifestyle modifications, dietary restrictions. Patient encouraged to limit caloric intake and increase physical activity. Not interested in trying out GLP agonists. Body mass index [BMI] 45.0-49.9, adult (Z68.42)01/16/2024 Assessment & Plan (07/14/2024 9:51 AM EST): Discussed with patient their BMI (actual, verses recommended). We have also discussed lifestyle modifications: attempts to perform physical activity as chronic conditions allow, also to monitor dietary intake: increasing protein/fruits/veggies and lowering carb intake (unless contraindicated). Limit sodas, juices, and sugary drinks. Also discussed oral medications that can be utilized for weight loss, as well as surgical options for weight loss.\ Assessment & Plan (01/16/2024 10:57 AM EDT): Recommended weight loss. Offered GLP agonists along with lifestyle modifications. Not interested intrying out Wegovy Gastroesophageal reflux disease without jjlenjlubde46/19/2024 Assessment & Plan (01/12/2025 6:21 AM EDT): Recommendations: freq small meals, nothing to eat or drink at least 2 hours prior to bed, limit caffeine, alcohol, as well as spicy foods Meds to limit or avoid if possible: NSAIDS Elevate HOB if possible Current meds: PPI Assessment & Plan (01/16/2024 10:58 AM EDT): On protonix. C/w same Encounter for screening for malignant neoplasm of colon07/17/2023 Assessment & Plan (07/17/2023 11:39 AM EST): Prior hx of colonic polyps -2 removed around 5 years on routine colonoscopy. Refer to GI for repeat Colonoscopy. Primary iyxwdavnaooq71/19/2023 Assessment & Plan (01/12/2025 9:10 AM EDT): Please check blood pressure daily and record DASH diet Limit caffeine Take medication as directed Contact office if chest pain, pressure, dizziness, shortness of breath, swelling legs Recommend slow position changes Current meds: toprol XL and omesartan Had life line screening : normal for AAA Assessment & Plan (07/14/2024 9:49 AM EST): Currently taking Metoprolol 200mg Olmesartan Checks BP at home; Averages are 120's/80's. Denies orthostatic changes, dizziness, cough, shortness of breath, swelling in extremities. Continue current regimen. Given BP log, advised pt to record BP and bring log back with them to next visit. Assessment & Plan (01/16/2024 10:58 AM EDT): BP well controlled. On average less than 130/90. Tolerating Anti hypertensive w/o adverse effects. Denies lightheadedness, dizziness, syncope, presyncope. C/w Benicar, Toprol. Labs ordered Assessment & Plan (07/17/2023 11:34 AM EST): BP well controlled. On average less than 130/90. Tolerating Anti hypertensive w/o adverse effects. Denies lightheadedness, dizziness, syncope, presyncope. Patient encouraged to continue with home BP monitoring and call office if he experiences orthostatic symptoms or persistently elevated BP. C/w Benicar, Toprol. Recent labs 06/21 - normal CBC, CMP Metabolic emdsnazr96/19/2023 Assessment & Plan (07/17/2023 11:38 AM EST): HLD, morbidly obese with BMI over 47. Patient educated on risks of increased cardiovascular morbidity/mortality and poor health outcomes associated with unhealthy bodyweight. Patient counseled on lifestyle modifications, dietary restrictions. Patient encouraged to limit caloric intake and increase physical activity. Therapeutic and surgical options reviewed with patient . Patient was offered opportunity to ask questions and address their concern. On Lipitor for HLD. Will start patient on Wegovy. Patient counseled and educated on adverse effects, drug interactions and to reach out to office/pharmacy if questions or concerns related to new medications. Wellness fyvrdjfgfry38/19/2023 Assessment & Plan (07/17/2023 11:40 AM EST): Patient here for Annual Wellness Exam. Reviewed medical, surgical and social hx. Reviewed medications, discussed labs with the patient. Patient referred to GI for Colonoscopy. Discussed in great detail lifetyle measures, dietary restrictions, modifications to help with weight loss. Starting the patient on Wegovy for it. Likely will need PA. Resolved Problems ProblemNoted DateDiagnosed DateResolved DateChronic gout without tophus /Other mmdarngkezuvsc54 Assessment & Plan (07/14/2024 9:49 AM EST): Currently taking Atorvastatin 20mg Denies any myalgias. Continue current regimen.Currently taking Atorvastatin 20mg Denies any myalgias. Continue current regimen. Assessment & Plan (01/16/2024 10:59 AM EDT): Co-morbidities: Obesity, HTN, Male gender. Lipid Panel: 09/22 LDL: 76 while on lipitor. C/w same Check labs before next appt Assessment & Plan (07/17/2023 11:37 AM EST): Co-morbidities: Obesity, HTN, Male gender. Last Lipid Panel: LDL: 135 TAG 172 T. Cholesterol 207 HDL 38 Was started on Lipitor. Tolerating it well. No adverse effects reported by the patient. Check Lipid panel, LFTs to ensure hepatic function is stable, and dose is appropriate for him Morbid hvopxtj69/ Assessment & Plan (07/17/2023 11:38 AM EST): Patient educated on risks of increased cardiovascular morbidity/mortality and poor health outcomes associated with unhealthy bodyweight. Patient counseled on lifestyle modifications, dietary restrictions. Patient encouraged to limit caloric intake and increase physical activity. Starting the patient on Wegovy. Immunizations ImmunizationAdministration DatesNext NksAQX7108/06/2020Influenza, High-dose Seasonal, Quadrivalent, Preservative Free05/30/2023Influenza, seasonal, fibotxnvfw35/25/2024 Family History Medical HistoryRelationNameCommentsHeart diseaseFatherLonnieHypertensionFather LonnieKidney diseaseFatherLonnieStrokeFatherLonnieAsthmaMaternal Grandfather HarryCancerMaternal GrandmotherIrmaCancerMotherCarolHearing lossPaternal GrandfatherGlennHypertensionPaternal GrandfatherGlennRelationNameStatusComments FatherLonnieMaternal GrandfatherHarryMaternal GrandmotherIrmaMotherCarolPaternal GrandfatherGlenn Social History Tobacco UseTypesPacks/DayYears UsedDateSmoking Tobacco: NeverSmokeless Tobacco: Never Tobacco Cessation:Counseling Given: Not Answered Alcohol UseStandard Drinks/WeekCommentsNot Currently0 (1 standard drink = 0.6 oz pure alcohol)[id number] Health LiteracyAnswerDate RecordedHow often do you need to have someone help you when you read instructions, pamphlets, or other written material from your doctor or pharmacy?Never01/07/2025Humiliation, Afraid, Rape, and Kick questionnaireAnswerDate RecordedWithin the last year, have you been afraid of your partner or ex-partner?No01/07/2025Within the last year, have you been humiliated or emotionally abused in other ways by your partner or ex-partner?No01/07/2025Within the last year, have you been kicked, hit, slapped, or otherwise physically hurt by your partner or ex-partner?No01/07/2025Within the last year, have you been raped or forced to have any kind of sexual activity by your partner or ex-partner?No01/07/2025Social Connection and Isolation Panel AnswerDate RecordedIn a typical week, how many times do you talk on the phone with family, friends, or neighbors?Patient olbjomis82/11/2025How often do you get together with friends or relatives?Patient tfnlmuzb20/11/2025How often do you attend orthodoxy or mosque services?Patient /11/2025Do you belong to any clubs or organizations such as orthodoxy groups, unions, fraternal or athletic groups, or school groups?Patient zcainrqe48/11/2025How often do you attend meetings of the clubs or organizations you belong to?Patient declined 01/07/2025re you , , , , never , or living with a partner?Never knyljby8101/07/2025UDIT-CAnswerDate RecordedQ1: How often do you have a drink containing alcohol?2-4 times a month01/07/2025Q2: How many drinks containing alcohol do you have on a typical day when you are drinking?1 or Q3: How often do you have six or more drinks on one occasion?Never01/07/2025Overall Financial Resource Strain (CARDIA)AnswerDate RecordedHow hard is it for you to pay for the very basics like food, housing, medical care, and heating?Patient laowgwit87/11/2025[facility] [place] [facility] Occup[facility] - Occupational Stress QuestionnaireAnswerDate RecordedDo you feel stress - tense, restless, nervous, or anxious, or unable to sleep at night because yourmind is troubled all the time - these days?Patient declined 01/07/2025Exercise Vital SignAnswerDate RecordedOn average, how many days per week do you engage in moderate to strenuous exercise (like a brisk walk)?Patient /11/2025On average, how many minutes do you engage in exercise at this level?Patient tygcnttt33/11/2025Hunger Vital SignAnswerDate RecordedWithin the past 12 months, you worried that your food would run out before you got the money to buymore.Patient azvoggfk08/11/2025Within the past 12 months, the food you bought just didn't last and you didn't have money to get more.Patient evqzndtl18/11/2025PRAPARE - TransportationAnswerDate RecordedIn the past 12 months, has lack of transportation kept you from medical appointments or from getting medications?Patient kdhlzrep50/11/2025In the past 12 months, has lack of transportation kept you from meetings, work, or from getting things needed for daily living?Patient /11/2025Housing Stability Vital SignAnswerDate RecordedIn the last 12 months, was there a time when you were not able to pay the mortgage or rent on time?Patient exifgnh3807/10/2023Number of Places Lived in the Last YearNot on file07/10/2023In the last 12 months, was there a time when you did not have a steady place to sleep or slept in [facility] (including now)? Patient dugwofj8007/10/2023Housing Stability Vital SignAnswerDate RecordedIn the last 12 months, was there a time when you were not able to pay the mortgage or rent on time?No01/07/2025Number of Times Moved in the Last YearNot on file 01/07/2025t any time in the past 12 months, were you homeless or living in a fpc (including now)?No01/07/2025Sex and Gender InformationValueDate Recorded Sex Assigned at LwzklJtrl59/06/2023 4:26 PM ESTLegal RigFhhe88/02/2023 2:18 PM EDTGender ZkhrrbwaLqsb94/06/2023 4:26 PM ESTSexual GbypkljvuwrDepxgqeg56/06/2023 4:26 PM EST Last Filed Vital Signs Vital SignReadingTime TakenCommentsBlood Jicjfsai575/8601/12/2025 9:14 AM EDT Enops199301/12/2025 8:49 AM DHLXjdpogvjfdf13.4 ??C (97.5 ??F)01/12/2025 8:49 AM EDTRespiratory Work549001/12/2025 8:49 AM EDTOxygen Poivekmfua12%01/12/2025 8:49 AM EDTInhaled Oxygen Concentration--Ryqvjc996 kg (379 lb)01/12/2025 8:49 AM EDT Nigvwm792.5 cm (6' 3 )10/14/2024 8:04 AM EDTBody Mass Index47.37010/14/2024 8:04 AM EDT Plan of Treatment Health MaintenanceDue DateLast DoneCommentsCT Qgnvkqmmliky34/30/1976FIT-DNA 1975FIT1975FOBT1975 7604Icthxogzifjrg63/30/1976Pneumococcal Vaccine: Pediatrics (0 to 5 Years) and At-Risk Patients (6 to 64 Years) (1 of 2 - PCV)1994COVID-19 Vaccine ( season)/, 07/19/2021, 10/30/2020, Additional history existsInfluenza Vaccine (#1) /, 2901Rflhjsmnpfj00Colorectal Cancer Fbhhkysxl11/01/2027 Insurance Care Teams Team MemberRelationshipSpecialtyStart DateEnd Date Shaikh Lugo MD [address] [place] [phone] PCP - Medical [place] [employer]07/30/1611 Juan C Hu MD [address] [place] [id number] PCP - GeneralFamily Kskxschm84/4/24 Belinda Mcfarland NP Nurse PractitionerFamily Ytqjejpe00/4/24
[2025-07-21 09:02] LABS: Hemoglobin 15.6 g/dL (14.0-18.0)
--- NOTE | 2025-07-21 09:37 | XR_ITS ---
The [address] [address] Patient Name: ORLIN VILLARREAL MRN: [id number] date: 1975 Sex: M Assigned Patient Location: CARD Current Patient Location: CARD Accession/Order Number: [id number] Exam Date: 07/21/2025 09:45 Report Date: 07/21/2025 11:30 At the request of: SCOTT GOODEN DO Procedure: XR chest 2V PA AND LATERAL CHEST: CLINICAL HISTORY: Chronic Wheezing, Shortness Of Breath COMPARISON: None There is no focal parenchymal consolidation, effusion or pneumothorax. The cardiac, hilar and mediastinal silhouettes are within normal limits. There is no vascular congestion. The visualized bony thorax is intact. Endplate spurring is present at the spine. XR/XR chest 2V IMPRESSION: NO ACUTE CARDIOPULMONARY ABNORMALITY. Impression dictated by: Patricia Ramirez M.D. 07/21/2025 11:30 AM Dictation Location: [place] [address] Electronically authenticated by: [id number] Date: 07/21/2025 11:30
== END 2025-07-21 08:53 | disposition home or self-care (01) ==
LOC: CARD 08:52
PROVIDERS: PCP Family Medicine; Visit Provider Family Medicine
DX: R06.02 Shortness of breath (principal); J30.2 Other seasonal allergic rhinitis; R06.2 Wheezing
CPT/HCPCS: 36415; 71046; 85018; 94010; 94726; 94729